=== PATIENT | female | born 1980 | race Caucasian/White ===

== ENCOUNTER → 2016-08-22 | Outpatient (CLI) | payer BC ==
--- NOTE | 2016-08-22 12:22 | Diagnostic Imaging Report ---
PROCEDURE: MRI lumbar spine. TECHNIQUE: Multiplanar, multisequence MRI of the lumbar spine was performed without contrast. INDICATION: Chronic back pain. Left leg pain. FINDINGS: There is a slight straightening of the lumbar spine curvature, may relate to muscle spasm. There is a satisfactory alignment of the lumbar spine at the posterior spinal line and facet joints. The vertebral body heights are normal. Disc heights and signal are normal. No significant marrow signal abnormality is seen. The cauda equina and conus medullaris appear grossly unremarkable. T12-L1: No disc herniation, no spinal canal, or foraminal stenosis. L1-L2: No disc herniation, no spinal canal, or foraminal stenosis. L2-L3: No disc herniation, no spinal canal, or foraminal stenosis. L3-L4: No disc herniation. There is mild facet and ligamentous hypertrophy. No central canal, lateral recess, or foraminal stenosis. L4-L5: No disc herniation. There is a minimal facet and ligamentous hypertrophy. No central canal, lateral recess, or foraminal stenosis. L5-S1: No disc herniation, no spinal canal, or foraminal stenosis. IMPRESSION: Slight straightening of the thoracolumbar curvature may relate to muscle spasm. Minimal degenerative facet changes. Dictated by: Dictated on workstation # [id number]
--- NOTE | 2016-08-22 12:59 | Diagnostic Imaging Report ---
PROCEDURE: MRI left joint lower extremity without contrast. TECHNIQUE: Multiplanar, multisequence non contrast-enhanced MRI of the left lower extremity was accomplished. INDICATION: Left hip pain. FINDINGS: There is normal marrow signal with no suspicious focal lesion, fracture, or evidence of avascular necrosis. There is no significant joint effusion. No significant degenerative changes are seen. There is a 3 x 9 x 4 mm cystic focus seen anterior to the right hip abutting the acetabulum and the base of the labrum. This could be a ganglion cyst or a paralabral cyst potentially related to prior injury. There is no obvious labral tear based on this study without intra-articular contrast. The muscle bulk and signal is normal. No evidence of a muscle tear. There is normal appearance of the iliopsoas tendons and the origin of the hamstring muscles. No distention of the iliopsoas bursa. There is minimal edema along the greater trochanteric bursa suggestive of mild bursitis which appears to be symmetric. Structures in the true pelvis appear grossly unremarkable. IMPRESSION: 1. Slight edema in the greater trochanteric bursa region bilaterally suggestive of mild bursitis. 2. Subcentimeter cystic area anterior to the left acetabulum could relate to tiny ganglion cyst or a paralabral cyst. No obvious labral abnormality is seen. Dictated by: Dictated on workstation # [id number]
== END ==
LOC: RAD 09:19
PROVIDERS: ATTEND Nurse Practitioner Family
DX: M46.1 Sacroiliitis, not elsewhere classified (principal); M54.42 Lumbago with sciatica, left side; G89.29 Other chronic pain
CPT/HCPCS: 72148; 73721

== ENCOUNTER 2018-09-12 09:28 | Emergency (ER) | payer BC ==
[~2018-09-12] VITALS: Ht 157.5 cm; Wt 48.1 kg
--- NOTE | 2018-09-12 10:02 | NUR ---
NOTIFIED OF PT'S PAIN.
--- NOTE | 2018-09-12 10:12 | ED Chest Pain ---
General Chief Complaint: Chest Wall Stated Complaint: RIB PAIN Nursing Triage Note: AMBULATED TO ROOM 10 WITH COMPLAINTS OF LEFT SIDED RIB PAIN AFTER FALLING LAST NIGHT WHILE "HORSING AROUND". STATES SHE HAD BEEN DRINKING ETOH WHEN SHE FELL. Nursing Sepsis Screen: No Definite Risk Source: patient, family Exam Limitations: no limitations History of Present Illness Date Seen by Provider: Sep 12, 2018 Time Seen by Provider: 10:09 Initial Comments This 37-year-old female presents after she sustained an injury to her left chest wall when she fell last night while she was roughhousing with her . The patient is complaining of pain over the left chest wall where she impacted the floor. She is having painful inspirations and feels short of breath. She has had no associated hemoptysis, hematuria, hematemesis, or bloody stool. Patient denies associated head or neck injury. Patient denies paresthesias or weakness in extremities. Patient denies previous significant chest wall injury. Allergies and Home Medications Allergies Coded Allergies: Mirtazapine (Verified Allergy, Unknown, 09/20/08) Home Medications No Active Prescriptions or Reported Meds Patient Home Medication List Home Medication List Reviewed: Yes Review of Systems Review of Systems Constitutional: No chills, No fever EENTM: No Blurred Vision Respiratory: See HPI, Shortness of Air Cardiovascular: Chest Pain (left-sided with inspiration.) Gastrointestinal: No Symptoms Reported; Denies Abdominal Pain, Denies Diarrhea, Denies Vomiting Genitourinary: Denies Burning, Denies Drainage Musculoskeletal: No back pain; other (left chest wall pain.) Skin: no symptoms reported Psychiatric/Neurological: No Symptoms Reported Endocrine: No Symptoms Reported Hematologic/Lymphatic: No Symptoms Reported Past Mtrhbel-Gjwedj-Arkzbg Hx Past Med/Social Hx: Reviewed Nursing Past Med/Soc Hx Patient Social History Alcohol Use: Occasionally Uses Recreational Drug Use: No Smoking Status: Current Everyday Smoker Type Used: Cigarettes Recent Foreign Travel: No Contact w/Someone Who Travel: No Recent Infectious Disease Expo: No Recent Hopitalizations: No Seasonal Allergies Seasonal Allergies: No Past Medical History Surgeries: Yes Gallbladder Respiratory: No Cardiac: No Neurological: No Reproductive Disorders: No Gastrointestinal: No Musculoskeletal: Yes (Hip pain with back pain) Chronic Back Pain Endocrine: No Cancer: No Psychosocial: No Integumentary: No Blood Disorders: No Physical Exam Vital Signs Vital Signs - First Documented 09/12/18 09:36 Temp 98.0 Pulse 103 Resp 16 B/P (MAP) 105/79 (88) Pulse Ox 100 O2 Delivery Room Air Capillary Refill : Less Than 3 Seconds Height, Weight, BMI Height: 5'2.00" Weight: 106lbs. oz. 48.346386us; BMI Method:Stated General Appearance: Mild Distress HEENT: Normal ENT Inspection Neck: Full Range of Motion Respiratory: Lungs Clear, Decreased Breath Sounds; No Respiratory Distress Cardiovascular: Regular Rate, Rhythm, No Edema Gastrointestinal: Normal Bowel Sounds, No Organomegaly, No Pulsatile Mass, Non Tender Extremity: Normal Capillary Refill, Normal Inspection, Normal Range of Motion, Non Tender Neurologic/Psychiatric: Alert, Oriented x3, No Motor/Sensory Deficits, Normal Mood/Affect Skin: Normal Color, Warm/Dry; No Ecchymosis, No Rash Progress/Results/Core Measures Results/Orders Lab Results Laboratory Tests Test 09/12/18 10:14 09/12/18 10:19 Range/Units Urine Color YELLOW Urine Clarity SLIGHTLY CLOUDY Urine pH 5 5-9 Urine Specific [place] 1.020 1.016-1.022 Urine Protein 1+ H NEGATIVE Urine Glucose (UA) NEGATIVE NEGATIVE Urine Ketones NEGATIVE NEGATIVE Urine Nitrite NEGATIVE NEGATIVE Urine Bilirubin NEGATIVE NEGATIVE Urine Urobilinogen NORMAL NORMAL MG/DL Urine Leukocyte Esterase 1+ H NEGATIVE Urine RBC (Auto) 3+ H NEGATIVE Urine RBC NONE /HPF Urine WBC 2-5 /HPF Urine Squamous Epithelial Cells 10-25 H /HPF Urine Crystals NONE /LPF Urine Bacteria TRACE /HPF Urine Casts NONE /LPF Urine Mucus NEGATIVE /LPF Urine Culture Indicated NO White Blood Count 7.4 4.3-11.0 10^3/uL Red Blood Count 4.77 4.35-5.85 10^6/uL Hemoglobin 15.3 11.5-16.0 G/DL Hematocrit 42 35-52 % Mean Corpuscular Volume 89 80-99 FL Mean Corpuscular Hemoglobin 32 25-34 PG Mean Corpuscular Hemoglobin Concent 36 32-36 G/DL Red Cell Distribution Width 11.4 10.0-14.5 % Platelet Count 249 130-400 10^3/uL Mean Platelet Volume 9.6 7.4-10.4 FL Neutrophils (%) (Auto) 73 42-75 % Lymphocytes (%) (Auto) 19 12-44 % Monocytes (%) (Auto) 6 0-12 % Eosinophils (%) (Auto) 2 0-10 % Basophils (%) (Auto) 0 0-10 % Neutrophils # (Auto) 5.4 1.8-7.8 X 10^3 Lymphocytes # (Auto) 1.4 1.0-4.0 X 10^3 Monocytes # (Auto) 0.4 0.0-1.0 X 10^3 Eosinophils # (Auto) 0.2 0.0-0.3 10^3/uL Basophils # (Auto) 0.0 0.0-0.1 10^3/uL My Orders Orders - MANUEL HARPER MD Chest Pa/Lat (2 View) (09/12/18 10:06) Ribs, Left 2-3 Views (09/12/18 10:06) Cbc With Automated Diff (09/12/18 10:06) Ua Culture If Indicated (09/12/18 10:06) Fentanyl Injection (Sublimaze Injection (09/12/18 10:15) Medications Given in ED Current Medications Medications Dose Ordered Sig/Rodney Route Start Time Stop Time Status Last Admin Dose Admin Fentanyl Citrate 50 mcg ONCE ONCE IVP 09/12/18 10:15 09/12/18 10:16 DC 09/12/18 10:17 50 MCG Vital Signs/I&O 09/12/18 09:36 Temp 98.0 Pulse 103 Resp 16 B/P (MAP) 105/79 (88) Pulse Ox 100 O2 Delivery Room Air Blood Pressure Mean: 88 Progress Progress Note : Time: 11:06 Progress Note This patient's radiographic evaluation demonstrated moderately displaced fractures of the sixth seventh and eighth ribs on the left. There is no evidence of a pneumohemothorax. CBC was unremarkable. Urinalysis demonstrated chemical but not microscopic evidence of hematuria. Patient was given 50 g of fentanyl IV with significant improvement in her pain. I discussed the findings with patient and her and placed the patient on Vicodin for pain giving her 30 tablets. I recommended close follow-up with her doctor on Friday. I recommended deep breaths each hour while awake to avoid atelectasis. I invited the patient to the emergency department should any further problems or questions Departure Impression Primary Impression: Fracture of rib Qualified Codes: S22.42XA - Multiple fractures of ribs, left side, initial encounter for closed fracture Additional Impression: Chest wall pain Disposition: HOME, SELF-CARE Condition: Improved Departure-Patient Inst. Decision time for Depature: 11:07 Referrals: [facility]/IZAIAH SALINAS,LOCAL PHYSICIAN (PCP) Primary Care Physician Patient Instructions: Rib Fractures in Adults Add. Discharge Instructions: Vicodin for pain. Deep breaths each hour to avoid pneumonia. Close follow-up with [facility] on Friday. Return if any problems or questions. All discharge instructions reviewed with patient and/or family. Voiced understanding. Scripts No Active Prescriptions or Reported Meds MANUEL HARPER MD Sep 12, 2018 10:12
[2018-09-12] MEDS ORDERED: fentaNYL INJECTION 100 MCG/2 ML AMP IVP ONE (10:15)
[2018-09-12 10:19] LABS: BILIRUBIN,URINE NEGATIVE (NEGATIVE); CLARITY,URINE SLIGHTLY CLOUDY; COLOR,URINE YELLOW; GLUCOSE, URINE (UA) NEGATIVE (NEGATIVE); KETONES,URINE NEGATIVE (NEGATIVE); LEUKOCYTE ESTERASE ,URINE 1+ (NEGATIVE); NITRITE,URINE NEGATIVE (NEGATIVE); PH,URINE 5 (5-9); PROTEIN,URINE 1+ (NEGATIVE); UROBILINOGEN,URINE NORMAL (NORMAL)
[2018-09-12 10:25] LABS: BASOPHILS % (AUTO) 0 % (0-10); EOSINOPHILS # (AUTO) 0.2 10^3/uL (0.0-0.3); EOSINOPHILS % (AUTO) 2 % (0-10); HEMATOCRIT 42 % (35-52); HEMOGLOBIN 15.3 G/DL (11.5-16.0); LYMPHOCYTES # (AUTO) 1.4 X 10^3 (1.0-4.0); LYMPHOCYTES % (AUTO) 19 % (12-44); MEAN CORPUSCULAR HEMOGLOBIN 32 PG (25-34); MEAN CORPUSCULAR HGB CONC 36 G/DL (32-36); MEAN CORPUSCULAR VOLUME 89 FL (80-99); MEAN PLATELET VOLUME 9.6 FL (7.4-10.4); MONOCYTES # (AUTO) 0.4 X 10^3 (0.0-1.0); MONOCYTES % (AUTO) 6 % (0-12); NEUTROPHILS # (AUTO) 5.4 X 10^3 (1.8-7.8); NEUTROPHILS % (AUTO) 73 % (42-75); PLATELET COUNT 249 10^3/uL (130-400); RED CELL DISTRIBUTION WIDTH 11.4 % (10.0-14.5); WHITE BLOOD COUNT 7.4 10^3/uL (4.3-11.0)
[2018-09-12 10:26] LABS: BACTERIA,URINE TRACE /HPF
--- NOTE | 2018-09-12 10:41 | Diagnostic Imaging Report ---
INDICATION: Wrestling injury, left-sided pain FINDINGS: No lung contusion, pneumothorax or hemothorax is demonstrated. The cardiomediastinal and hilar contours appeared normal. There is no free air beneath the diaphragms. The sternum and manubrium show no morphological distortion. The thoracic spine unremarkable. No acute appearing abnormality. No identifiable rib fracture deformity. IMPRESSION: Unremarkable two-view chest Dictated by: Dictated on workstation # [id number]
--- NOTE | 2018-09-12 10:46 | Diagnostic Imaging Report ---
PATIENT HISTORY: Left rib pain after wrestling. TECHNIQUE: Frontal and oblique views of the left ribs COMPARISON: Chest x-ray from the same day FINDINGS: The left lung is clear. There are mildly displaced fractures of the lateral left sixth, seventh, and eighth ribs. IMPRESSION: Mildly displaced fractures of the left sixth through eighth ribs. Dictated by: Dictated on workstation # [id number]
[2018-09-12 11:20] VITALS: BP 111/84
== END 2018-09-12 11:20 | disposition home or self-care (01) ==
LOC: EDUNIT# 09:28 → ER 09:29
DX: S22.42XA Multiple fractures of ribs, left side, initial encounter for closed fracture (principal); R07.89 Other chest pain; F17.210 Nicotine dependence, cigarettes, uncomplicated; Z88.8 Allergy status to other drugs, medicaments and biological substances; W18.30XA Fall on same level, unspecified, initial encounter
CPT/HCPCS: 36415; 71046; 71100; 81000; 85025; 96374

== ENCOUNTER 2019-01-19 20:49 | Emergency (ER) | payer BC ==
[~2019-01-19] VITALS: Ht 157.4 cm; Wt 45.3 kg
[2019-01-20] MEDS ORDERED: RX-DOXYCYCLINE 100 MG (VIBRAMYCIN) TAB PPK#2 PO STA (00:44)
[2019-01-20] MEDS ORDERED: KETOROLAC 60 MG/2 ML VIAL IM ONE (00:45)
[2019-01-20] MEDS ORDERED: BENZONATATE 100 MG (TESSALON) CAPSULE PO SCH (00:45)
[2019-01-20] MEDS ORDERED: PROM118S4 PO (00:47)
[2019-01-20] MEDS ORDERED: DOXY100C42 PO (00:47)
[2019-01-20] MEDS ORDERED: METH4TAB PO (00:47)
[2019-01-20] MEDS ORDERED: BENZ100C18 PO (00:47)
--- NOTE | 2019-01-20 00:47 | ED Cough/URI ---
General Chief Complaint: Cough/Cold/Flu Symptoms Stated Complaint: UPPER RESP INFECTION Nursing Triage Note: PATIENT C/O COUGH, LEFT UPPER CHEST DISCOMFORT WHEN LYING AND SOB. THIS BEGAN APPROXIMATELY ONE WEEK AGO. SHE HAS A PAST HX OF THREE BROKEN LEFT RIBS AND FEELS LIKE "THE COUGHING HAS IRRITATED THEM". Sepsis Screen: No Definite Risk Allergies and Home Medications Allergies Coded Allergies: Mirtazapine (Verified Allergy, Unknown, 09/20/08) Home Medications No Active Prescriptions or Reported Meds Past Kgvkdpj-Hmvuyz-Jdbtru Hx Patient Social History Alcohol Use: Occasionally Uses Recreational Drug Use: Yes Type Used: Cigarettes Recent Foreign Travel: No Contact w/Someone Who Travel: No Recent Infectious Disease Expo: No Recent Hopitalizations: No Seasonal Allergies Seasonal Allergies: No Past Medical History Surgeries: Yes Gallbladder Respiratory: No Cardiac: No Neurological: No Reproductive Disorders: No Genitourinary: No Gastrointestinal: No Musculoskeletal: Yes (Hip pain with back pain, left rib fx x3) Chronic Back Pain, Fractures Endocrine: No Cancer: No Psychosocial: No Integumentary: No Blood Disorders: No Physical Exam Vital Signs - First Documented 01/19/19 22:45 Temp 36.4 Pulse 75 B/P (MAP) 147/92 (110) Pulse Ox 99 O2 Delivery Room Air Capillary Refill : Less Than 3 Seconds Height: 5'2.00" Weight: 106lbs. oz. 48.522325yi; 18.00 BMI Method:Stated Progress/Results/Core Measures Suspected Sepsis Recent Fever Within 48 Hours: No Infection Criteria Present: Suspected New Infection New/Unexplained Altered Menta: No Sepsis Screen: No Definite Risk SIRS Temperature: Pulse: 75 Respiratory Rate: Blood Pressure 147 /92 Mean: 110 Results/Orders Micro Results Microbiology 01/19/19 Influenza Types A,B Antigen (MARISA) - Final, Complete My Orders Orders - SHAYAN HYATT DO Influenza A And B Antigens (01/19/19 23:37) Urine Bedside (01/19/19 23:48) Chest Pa/Lat (2 View) (01/20/19 00:01) Vital Signs/I&O 01/19/19 22:45 Temp 36.4 Pulse 75 B/P (MAP) 147/92 (110) Pulse Ox 99 O2 Delivery Room Air Capillary Refill : Less Than 3 Seconds Blood Pressure Mean: 110 Departure Impression Primary Impression: Bronchitis Additional Impression: Left-sided chest wall pain Disposition: HOME, SELF-CARE Condition: Stable Departure-Patient Inst. Referrals: NO,LOCAL PHYSICIAN (PCP/Family) Primary Care Physician Patient Instructions: Acute Bronchitis, Adult (DC), Costochondritis (DC) Add. Discharge Instructions: TYLENOL AND MOTRIN NEEDED FOR PAIN OR FEVER LOTS OF CLEAR LIQUIDS FOLLOW UP WITH YOUR DR IN 3-4 DAYS IF NO BETTER All discharge instructions reviewed with patient and/or family. Voiced understanding. Scripts Methylprednisolone (Medrol) 4 Mg Tab.ds.pk 4 MG PO UD, #1 PKG Prov: SHAYAN HYATT DO 01/20/19 D-Methorphan Hb/Prometh HCl (Promethazine-Dm Syrup) 118 Ml Syrup 1-2 TSP PO Q4H for Cough, #120 ML Prov: SHAYAN HYATT DO 01/20/19 Benzonatate (TESSALON PERLES) 100 Mg Capsule 1-2 TAB PO TID for Cough, #30 CAP Prov: SHAYAN HYATT DO 01/20/19 Doxycycline Monohydrate (Doxycycline Monohydrate) 100 Mg Capsule 100 MG PO BID, #20 CAP Prov: SHAYAN HYATT DO 01/20/19 SHAYAN HYATT DO Jan 20, 2019 00:47
[2019-01-20 01:09] VITALS: BP 132/102
--- NOTE | 2019-01-20 07:06 | Diagnostic Imaging Report ---
INDICATION: Cough. Rib pain. The lungs are well aerated. There are no infiltrates. No pneumothorax or pleural effusion. No bony abnormalities. Heart is not enlarged. IMPRESSION: Normal PA and lateral chest. Dictated by: Dictated on workstation # [id number]
== END 2019-01-20 01:16 | disposition home or self-care (01) ==
LOC: EDUNIT# 20:49 → ER 20:51
DX: J40 Bronchitis, not specified as acute or chronic (principal); R07.89 Other chest pain; Z88.8 Allergy status to other drugs, medicaments and biological substances
CPT/HCPCS: 71046; 84703; 87804

== ENCOUNTER 2019-08-19 01:50 | Emergency (ER) | payer BC ==
[~2019-08-19 01:50] MED LIST: BENZ100C18 PO; DOXY100C42 PO; METH4TAB PO; PROM118S5 PO
[2019-08-19 03:18] LABS: BILIRUBIN,URINE NEGATIVE (NEGATIVE); CLARITY,URINE CLEAR; COLOR,URINE YELLOW; GLUCOSE, URINE (UA) NEGATIVE (NEGATIVE); KETONES,URINE NEGATIVE (NEGATIVE); LEUKOCYTE ESTERASE ,URINE NEGATIVE (NEGATIVE); NITRITE,URINE NEGATIVE (NEGATIVE); PH,URINE 5.5 (5-9); PROTEIN,URINE TRACE (NEGATIVE)
[2019-08-19 03:30] LABS: BACTERIA,URINE NEGATIVE /HPF; RBC,URINE 0-2 /HPF; SQUAMOUS EPITHELIAL CELL,UR RARE /HPF; WBC,URINE RARE /HPF
[2019-08-19 03:32] LABS: AMPHETAMINE SCREEN, URINE NEGATIVE (NEGATIVE); BARBITURATE SCREEN URINE NEGATIVE (NEGATIVE); BENZODIAZEPINES SCREEN URINE NEGATIVE (NEGATIVE); CANNABINOID SCREEN, URINE NEGATIVE (NEGATIVE); COCAINE SCREEN URINE NEGATIVE (NEGATIVE); METHADONE STAT NEGATIVE (NEGATIVE); METHAMPHETAMINE SCREEN URINE S NEGATIVE (NEGATIVE); OPIATE SCREEN URINE NEGATIVE (NEGATIVE); OXYCODONE STAT NEGATIVE (NEGATIVE); PROPOXYPHENE STAT NEGATIVE (NEGATIVE); TRICYCLIC ANTIDEPRESSANTS SCRE NEGATIVE (NEGATIVE)
[2019-08-19] MEDS ORDERED: KETOROLAC 30 MG/ML VIAL IVP STA (03:33)
[2019-08-19 03:56] LABS: BASOPHILS % (AUTO) 0 % (0-10); EOSINOPHILS # (AUTO) 0.2 10^3/uL (0.0-0.3); EOSINOPHILS % (AUTO) 4 % (0-10); HEMATOCRIT 41 % (35-52); HEMOGLOBIN 14.7 G/DL (11.5-16.0); LYMPHOCYTES # (AUTO) 1.3 X 10^3 (1.0-4.0); LYMPHOCYTES % (AUTO) 22 % (12-44); MEAN CORPUSCULAR HEMOGLOBIN 33 PG (25-34); MEAN CORPUSCULAR HGB CONC 36 G/DL (32-36); MEAN CORPUSCULAR VOLUME 92 FL (80-99); MEAN PLATELET VOLUME 9.6 FL (7.4-10.4); MONOCYTES # (AUTO) 0.5 X 10^3 (0.0-1.0); MONOCYTES % (AUTO) 7 % (0-12); NEUTROPHILS % (AUTO) 67 % (42-75); PLATELET COUNT 285 10^3/uL (130-400); RED CELL DISTRIBUTION WIDTH 11.7 % (10.0-14.5); WHITE BLOOD COUNT 6.1 10^3/uL (4.3-11.0)
[2019-08-19 04:04] LABS: ALBUMIN 4.6 GM/DL (3.2-4.5); CHLORIDE 107 MMOL/L (98-107); POTASSIUM 3.2 MMOL/L (3.6-5.0); SODIUM 139 MMOL/L (135-145)
[2019-08-19 04:05] LABS: AMYLASE 51 U/L (25-125); CALCIUM 9.2 MG/DL (8.5-10.1)
[2019-08-19 04:06] LABS: GLUCOSE 97 MG/DL (70-105); TOTAL PROTEIN 7.5 GM/DL (6.4-8.2)
[2019-08-19 04:07] LABS: CARBON DIOXIDE 21 MMOL/L (21-32)
[2019-08-19 04:08] LABS: BILIRUBIN,TOTAL 0.8 MG/DL (0.1-1.0)
[2019-08-19 04:09] LABS: ALKALINE PHOSPHATASE 42 U/L (40-136)
[2019-08-19 04:10] LABS: GFR ESTIMATED > 60
[2019-08-19 04:11] LABS: BUN/CREATININE RATIO 17
[2019-08-19 04:13] LABS: ALANINE AMINOTRANSFERASE 15 U/L (0-55); LIPASE 16 U/L (8-78)
[2019-08-19] MEDS ORDERED: CIPROFLOXACIN 500 MG (CIPRO) TABLET PO SCH (05:15)
[2019-08-19] MEDS ORDERED: metroNIDAZOLE 500 MG (FLAGYL) TAB PO ONE (05:15)
[2019-08-19] MEDS ORDERED: DICY20TA10 PO (05:19)
[2019-08-19] MEDS ORDERED: METR500T PO (05:19)
[2019-08-19] MEDS ORDERED: ONDA4TAB11 PO (05:19)
[2019-08-19] MEDS ORDERED: L. A1CAP11 PO (05:19)
[2019-08-19] MEDS ORDERED: HYOS0.1283 SL (05:19)
[2019-08-19] MEDS ORDERED: CIPR500T4 PO (05:19)
--- NOTE | 2019-08-19 05:19 | ED Abdominal Pain ---
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 TOOK 2 TYLENOL AT 2330. LMP 08/17/19, NO INCREASE OF BLEEDING. STATES VOMITED 4X FROM THE PAIN. Sepsis Screen: No Definite Risk Source of Information: Patient History of Present Illness Date Seen by Provider: August 19, 2019 Time Seen by Provider: 02:45 Initial Comments PT ARRIVES VIA POV FROM HOME C/O "MENSTRUAL CRAMPS" ALL OVER ABDOMEN--STATES IT WOKE HER UP AROUND 2130 TONIGHT STATES HER MENSTRUAL PERIOD STARTED ON Friday08/17/19--COMPLETELY NORMAL. NO CONTROL. STATES SHE HAS HAD MENSTRUAL CRAMPS JUST LIKE THIS IN THE PAST, BUT DID NOT SEEK CARE TOOK 2 TYLENOL AT 2330 STATES "THE PAIN IS CONTINUOUS-PAIN IS SO BAD IT CAUSED ME TO THROW UP 4 TIMES--THE PAIN COMES AND GOES AND IT HAS SUBSIDED NOW" STATES PAIN RADIATES INTO BILATERAL FLANK AREAS AND LOWER BACK NO FEVER/SWEATS/CHILLS NO URINARY SYMPTOMS NO VAGINAL DISCHARGE PRIOR TO STARTED HER MENSTRUAL PERIOD. NO DIARRHEA OR CONSTIPATION PT ALSO STATES SHE HAS CHRONIC PAIN WITH INTERCOURSE, BUT NEVER SOUGHT CARE FOR THAT ISSUE. PT IS AB 0 NO SICK CONTACTS OR KNOWN EXPOSURE TO CORONAVIRUS. PCP: [facility] Allergies and Home Medications Allergies Coded Allergies: Mirtazapine (Verified Allergy, Unknown, 09/20/08) Home Medications Ciprofloxacin HCl 500 Mg Tablet, 500 MG PO BID Prescribed by: SHAYAN HYATT on 08/19/19518 Dicyclomine HCl 20 Mg Tablet, 20 MG PO Q6H Prescribed by: SHAYAN HYATT on 08/19/19518 Hyoscyamine Sulfate 0.125 Mg Tab.subl, 0.25 MG SL Q4H Prescribed by: SHAYAN HYATT on 08/19/19518 L. Acidophilus/Pectin, [place] 1 Each Capsule, 2 EACH PO QID Prescribed by: SHAYAN HYATT on 08/19/19518 Metronidazole 500 Mg Tablet, 500 MG PO QID Prescribed by: SHAYAN HYATT on 08/19/19518 Ondansetron 4 Mg Tab.rapdis, 4 MG PO Q4H Prescribed by: SHAYAN HYATT on 08/19/19 0519 Patient Home Medication List Home Medication List Reviewed: Yes Review of Systems Review of Systems Constitutional: no symptoms reported; No chills, No diaphoresis, No dizziness, No fever EENTM: No Symptoms Reported Respiratory: No Symptoms Reported Cardiovascular: No Symptoms Reported Gastrointestinal: See HPI, Abdominal Pain; Denies Constipated, Denies Diarrhea; Nausea, Vomiting Genitourinary: See HPI, Flank Pain Musculoskeletal: see HPI, back pain Skin: no symptoms reported Psychiatric/Neurological: No Symptoms Reported Endocrine: No Symptoms Reported Hematologic/Lymphatic: No Symptoms Reported Past Bqdajth-Botrlq-Jlyzpl Hx Past Med/Social Hx: Reviewed and Corrections made Patient Social History Alcohol Use: Occasionally Uses Recreational Drug Use: No Smoking Status: Current Everyday Smoker (1/2 PPD) Type Used: Cigarettes Recent Foreign Travel: No Contact w/Someone Who Travel: No Recent Infectious Disease Expo: No Recent Hopitalizations: No Physical Abuse: No Sexual Abuse: No Mistreated: No Fear: No Seasonal Allergies Seasonal Allergies: No Past Medical History Surgeries: Yes (MICHAEL 05/2005) Gallbladder Respiratory: No Cardiac: No Neurological: No Reproductive Disorders: No Genitourinary: No Gastrointestinal: Yes (MICHAEL 05/2005) Gall Bladder Disease Musculoskeletal: Yes (Hip pain with back pain, left rib fx x3) Chronic Back Pain, Fractures Endocrine: No HEENT: No Cancer: No Psychosocial: No Integumentary: No Blood Disorders: No Physical Exam Vital Signs Vital Signs - First Documented 08/19/19 02:42 Temp 36.5 Pulse 81 Resp 18 B/P (MAP) 148/107 (121) Pulse Ox 100 O2 Delivery Room Air Capillary Refill : Less Than 3 Seconds Height/Weight/BMI Height: 5'2.00" Weight: 106lbs. oz. 48.391067ns; 18.00 BMI Method:Stated General Appearance: no apparent distress, thin, other (DOES NOT APPEAR TO BE IN ANY DISCOMFORT OR DISTRESS. WALKS UPRIGHT AND MOVES WITHOUT DIFFICULTY. TEXTING/PLAYING ON PHONE THROUGHOUT EXAM AND VISIT. 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, no motor/sensory deficits, alert, normal mood/affect, oriented x 3 Skin: normal color, warm/dry; No rash Progress/Results/Core Measures Results/Orders Lab Results Laboratory Tests Test 08/19/19 03:08 08/19/19 03:45 Range/Units Urine Color YELLOW Urine Clarity CLEAR Urine pH 5.5 5-9 Urine Specific [place] >=1.030 1.016-1.022 Urine Protein TRACE H NEGATIVE Urine Glucose (UA) NEGATIVE NEGATIVE Urine Ketones NEGATIVE NEGATIVE Urine Nitrite NEGATIVE NEGATIVE Urine Bilirubin NEGATIVE NEGATIVE Urine Urobilinogen 0.2 < = 1.0 MG/DL Urine Leukocyte Esterase NEGATIVE NEGATIVE Urine RBC (Auto) 1+ H NEGATIVE Urine RBC 0-2 /HPF Urine WBC RARE /HPF Urine Squamous Epithelial Cells RARE /HPF Urine Crystals NONE /LPF Urine Bacteria NEGATIVE /HPF Urine Casts NONE /LPF Urine Mucus SMALL H /LPF Urine Culture Indicated NO Urine Opiates Screen NEGATIVE NEGATIVE Urine Oxycodone Screen NEGATIVE NEGATIVE Urine Methadone Screen NEGATIVE NEGATIVE Urine Propoxyphene Screen NEGATIVE NEGATIVE Urine Barbiturates Screen NEGATIVE NEGATIVE Ur Tricyclic Antidepressants Screen NEGATIVE NEGATIVE Urine Phencyclidine Screen NEGATIVE NEGATIVE Urine Amphetamines Screen NEGATIVE NEGATIVE Urine Methamphetamines Screen NEGATIVE NEGATIVE Urine Benzodiazepines Screen NEGATIVE NEGATIVE Urine Cocaine Screen NEGATIVE NEGATIVE Urine Cannabinoids Screen NEGATIVE NEGATIVE White Blood Count 6.1 4.3-11.0 10^3/uL Red Blood Count 4.50 4.35-5.85 10^6/uL Hemoglobin 14.7 11.5-16.0 G/DL Hematocrit 41 35-52 % Mean Corpuscular Volume 92 80-99 FL Mean Corpuscular Hemoglobin 33 25-34 PG Mean Corpuscular Hemoglobin Concent 36 32-36 G/DL Red Cell Distribution Width 11.7 10.0-14.5 % Platelet Count 285 130-400 10^3/uL Mean Platelet Volume 9.6 7.4-10.4 FL Neutrophils (%) (Auto) 67 42-75 % Lymphocytes (%) (Auto) 22 12-44 % Monocytes (%) (Auto) 7 0-12 % Eosinophils (%) (Auto) 4 0-10 % Basophils (%) (Auto) 0 0-10 % Neutrophils # (Auto) 4.0 1.8-7.8 X 10^3 Lymphocytes # (Auto) 1.3 1.0-4.0 X 10^3 Monocytes # (Auto) 0.5 0.0-1.0 X 10^3 Eosinophils # (Auto) 0.2 0.0-0.3 10^3/uL Basophils # (Auto) 0.0 0.0-0.1 10^3/uL Sodium Level 139 135-145 MMOL/L Potassium Level 3.2 L 3.6-5.0 MMOL/L Chloride Level 107 98-107 MMOL/L Carbon Dioxide Level 21 21-32 MMOL/L Anion Gap 11 5-14 MMOL/L Blood Urea Nitrogen 12 7-18 MG/DL Creatinine 0.70 0.60-1.30 MG/DL Estimat Glomerular Filtration Rate > 60 BUN/Creatinine Ratio 17 Glucose Level 97 70-105 MG/DL Calcium Level 9.2 8.5-10.1 MG/DL Corrected Calcium 8.5-10.1 MG/DL Total Bilirubin 0.8 0.1-1.0 MG/DL Aspartate Amino Transf (AST/SGOT) 15 5-34 U/L Alanine Aminotransferase (ALT/SGPT) 15 0-55 U/L Alkaline Phosphatase 42 40-136 U/L Total Protein 7.5 6.4-8.2 GM/DL Albumin 4.6 H 3.2-4.5 GM/DL Amylase Level 51 25-125 U/L Lipase 16 8-78 U/L My Orders Orders - EDMARLEAA K DO Ua Culture If Indicated (08/19/19 02:43) Urine Bedside (08/19/19 02:43) Straight Cath For Spec.-Adult (08/19/19 02:54) Drug Screen Stat (Urine) (08/19/19 02:54) Ed Iv/Invasive Line Start (08/19/19 03:33) Ct Abd/Pelvis Wo(Kidney Stone) (08/19/19 03:33) Amylase (08/19/19 03:33) Cbc With Automated Diff (08/19/19 03:33) Comprehensive Metabolic Panel (08/19/19 03:33) Lipase (08/19/19 03:33) Abdomen, Flat & Upright/Decub (08/19/19 03:33) Ketorolac Injection (Toradol Injection) (08/19/19 03:33) Ciprofloxacin Tablet (Cipro Tablet) (08/19/19 05:15) Metronidazole Tablet (Flagyl Tablet) (08/19/19 05:15) Potassium Chloride (Tablet) (K Dur Table (08/19/19 05:30) Medications Given in ED Current Medications Medications Dose Ordered Sig/Rodney Route Start Time Stop Time Status Last Admin Dose Admin Metronidazole 500 mg ONCE ONCE PO 08/19/19 05:15 08/19/19 05:16 DC 08/19/19 05:27 500 MG Potassium Chloride 20 meq ONCE ONCE PO 08/19/19 05:30 08/19/19 05:31 DC 08/19/19 05:27 20 MEQ Vital Signs/I&O 08/19/19 08/19/19 02:42 05:35 Temp 36.5 36.5 Pulse 81 79 Resp 18 18 B/P (MAP) 148/107 (121) 124/98 (121) Pulse Ox 100 100 O2 Delivery Room Air Room Air Blood Pressure Mean: 121 Progress Progress Note : Progress Note SYMPTOMS MUCH IMPROVED AT DISMISSAL Diagnostic Imaging Comments ABDOMEN XRAYS--NO ACUTE PROCESS, PENDING RADIOLOGIST REVIEW CT5 ABDOMEN/PELVIS--MILD DIFFUSE COLITIS, PER [facility] VIA FAX AT 0578 Reviewed: Reviewed by Me Departure Impression Primary Impression: Colitis Additional Impression: MILD HYPOKALEMIA Disposition: HOME, SELF-CARE Condition: Stable Departure-Patient Inst. Referrals: [facility] (PCP/Family) Primary Care Physician Patient Instructions: Colitis (DC) Add. Discharge Instructions: CLEAR LIQUIDS--WATER, BROTH, JELLO, GATORADE NO FOOD UNTIL YOUR PAIN AND NAUSEA IS GONE, THEN YOU MAY ADD A BRATS DIET TO CLEAR LIQUIDS--BANANAS, RICE, APPLESAUCE, TOAST, SALTINES FOLLOW UP WITH YOUR DR IN 3-4 DAYS IF NO BETTER All discharge instructions reviewed with patient and/or family. Voiced understanding. Scripts L. Acidophilus/Pectin, [place] (Acidophilus Capsule) 1 Each Capsule 2 EACH PO QID, #40 CAP Prov: SHAYAN HYATT DO 08/19/19 Ondansetron (Ondansetron Odt) 4 Mg Tab.rapdis 4 MG PO Q4H for Nausea/Vomiting, #10 TAB Prov: SHAYAN HYATT DO 08/19/19 Dicyclomine HCl (Dicyclomine HCl) 20 Mg Tablet 20 MG PO Q6H for Abdominal Pain, #20 TAB Prov: SHAYAN HYATT DO 08/19/19 Hyoscyamine Sulfate (Levsin-Sl) 0.125 Mg Tab.subl 0.25 MG SL Q4H, #10 TAB Prov: SHAYAN HYATT DO 08/19/19 Metronidazole (Flagyl) 500 Mg Tablet 500 MG PO QID, #40 TAB Prov: SHAYAN HYATT DO 08/19/19 Ciprofloxacin HCl (Ciprofloxacin HCl) 500 Mg Tablet 500 MG PO BID, #20 TAB Prov: SHAYAN HYATT DO 08/19/19 SHAYAN HYATT DO August 19, 2019 05:19
[2019-08-19] MEDS ORDERED: KCL 20 MEQ TAB (K-DUR) PO ONE (05:30)
[2019-08-19 05:35] VITALS: BP 124/98
--- NOTE | 2019-08-19 06:02 | Diagnostic Imaging Report ---
INDICATION: Abdominal pain. COMPARISON: CT abdomen and pelvis performed earlier same day. FINDINGS: Nonobstructive bowel gas pattern. No free intraperitoneal air. Cholecystectomy. No abnormal soft tissue mineralizations. A few scattered pelvic phleboliths are noted. IMPRESSION: No radiographic abnormality in the abdomen. Dictated by: Dictated on workstation # [id number]
--- NOTE | 2019-08-19 06:04 | Diagnostic Imaging Report ---
CT ABD/PELVIS WO(KIDNEY STONE) TECHNIQUE: Unenhanced CT imaging of the abdomen and pelvis was performed. 2-D reformats are created and submitted for interpretation. Automatic exposure controls were utilized to optimize patient dose. INDICATION: Abdominal pain. COMPARISON: None available. FINDINGS: Evaluation of the abdominal viscera is mildly limited without contrast. Lower chest: The lung bases are clear. No pericardial or pleural effusion. Peritoneum: No free intraperitoneal air or fluid. Liver and biliary system: Unenhanced liver is normal. Cholecystectomy. No biliary duct dilatation. Spleen and Pancreas: Spleen is normal. Unenhanced pancreas is grossly normal. Adrenals: Normal. tract: No renal or ureteral calculi. No obstructive uropathy. Urinary bladder is well filled without wall thickening. Uterus and ovaries are normal in appearance. GI tract: Stomach is decompressed. No bowel obstruction. The transverse, descending and rectosigmoid colon have circumferential wall thickening. A mild amount of inflammation is present along the descending colon. Appendix is normal. Vasculature and Lymph nodes: Normal caliber aorta. No abdominal or pelvic lymphadenopathy. Musculoskeletal: No concerning osseous lesion. IMPRESSION: 1. Acute colitis in a contiguous fashion from the transverse through rectosigmoid colon. This could represent an inflammatory colitis such as ulcerative colitis, or be due to an infectious process. 2. Findings are in agreement with the preliminary report. Dictated by: Dictated on workstation # [id number]
== END 2019-08-19 05:36 | disposition home or self-care (01) ==
LOC: EDUNIT# 01:50 → ER 01:53
DX: K52.9 Noninfective gastroenteritis and colitis, unspecified (principal); E87.6 Hypokalemia; F17.210 Nicotine dependence, cigarettes, uncomplicated; Z88.8 Allergy status to other drugs, medicaments and biological substances
CPT/HCPCS: 36415; 51701; 74019; 74176; 80053; 80306; 81000; 82150; 83690; 84703; 85025

== ENCOUNTER 2020-07-06 09:35 | Outpatient (RCR) | payer BC ==
[~2020-07-06] VITALS: Ht 157.5 cm; Wt 50.9 kg
[~2020-07-06 09:35] MED LIST changes: +CIPR500T5 PO; +DICY20TA10 PO; +HYOS0.1283 SL; +L. A1CAP11 PO; +METR500T PO; +ONDA4TAB11 PO
[2020-07-06] MEDS ORDERED: OMEP20CA18 PO (10:50)
== END 2020-07-06 12:26 | disposition home or self-care (01) ==
LOC: PREOP 09:35 → EDSTATUS 10:30 → PREOP 12:26
PROVIDERS: ATTEND Surgery
DX: Z01.818 Encounter for other preprocedural examination (principal)

== ENCOUNTER → 2020-07-07 | Outpatient (CLI) | payer BC ==
[~2020-07-07] MED LIST changes: +OMEP20CA18 PO
== END ==
LOC: LAB FS 10:30
PROVIDERS: ATTEND Surgery
DX: Z01.812 Encounter for preprocedural laboratory examination (principal); K21.9 Gastro-esophageal reflux disease without esophagitis; R11.2 Nausea with vomiting, unspecified; Z20.822 Contact with and (suspected) exposure to COVID-19
CPT/HCPCS: 87635

== ENCOUNTER 2020-07-10 11:06 | Day surgery (SDC) | payer BC ==
[~2020-07-10] VITALS: Ht 157.5 cm; Wt 50.9 kg
[2020-07-10] MEDS ORDERED: LACTATED RINGERS 1,000 ML IV STA (11:21)
[2020-07-10] MEDS ORDERED: LACTATED RINGERS 1,000 ML IV ONE (11:25)
[2020-07-10] MEDS ORDERED: HURRICAINE EXT TUBE (BENZOCAINE) XX PRN (11:30)
--- NOTE | 2020-07-10 11:37 | Progress Note-Pre Operative ---
Pre-Operative Progress Note H&P Reviewed The H&P was reviewed, patient examined and no changes noted. Time Seen by Provider: 11:35 Date H&P Reviewed: Jul 10, 2020 Time H&P Reviewed: 11:35 Pre-Operative Diagnosis: Hematemesis, Hx of H. Pylori GARCIA SPANN DO Jul 10, 2020 11:37
[2020-07-10 11:48] VITALS: BP 162/97
[2020-07-10] MEDS ORDERED: PROPOFOL INJECTION 50 ML IV ONE (11:58)
[2020-07-10] MEDS ORDERED: MIDAZOLAM 2 MG/2 ML (VERSED) VIAL ONE (11:59)
[2020-07-10] MEDS ORDERED: HURRICAINE EXT TUBE (BENZOCAINE) ONE (12:14)
--- NOTE | 2020-07-10 12:37 | Endoscopy Discharge Instruct ---
Endo Procedure/Findings Findings 1.: Gastritis 2.: Hiatal Hernia Discharge Instructions - Activity: You might feel a little sleepy until tomorrow. This is due to the medicine you received to relax you. Until tomorrow, you should: NOT drive a car, operate machinery or power tools. NOT drink any alcoholic beverages. NOT make any important decisions or sign importortant papers. Do not return to work until tomorrow, unless otherwise instructed. Resume previous activities tomorrow. Diet: Start by taking liquids. If you tolerate liquids, advance to solid food. 1.: EGD in 1 year Notify Physician - If you experience excessive bleeding, unusual abdominal pain, fever, or chest pain, contact your doctor immediately. GARCIA SPANN DO Jul 10, 2020 12:37
--- NOTE | 2020-07-10 12:37 | Progress Note-Post Operative ---
Post-Operative Progess Note Surgeon (s)/Toe Former (s) Surgeon GARCIA SPANN DO Toe Former: none Pre-Operative Diagnosis Hematemesis, Hx of H. Pylori Post-Operative Diagnosis same plus Gastritis Hiatal Hernia Procedure & Operative Findings Date of Procedure 07/10/20 Procedure Performed/Findings EGD with bx Anesthesia Type IV sedation by SUPERVISOR WATER SOFTENER SERVICE Estimated Blood Loss Estimated blood loss (mL): scant Specimens/Packing Specimens Removed antral bx body of stomach bx GE jxn bx GARCIA SPANN DO Jul 10, 2020 12:37
[2020-07-10 12:40] VITALS: BP 104/57
[2020-07-10 12:45] VITALS: BP 117/62
[2020-07-10 12:50] VITALS: BP 126/75
--- NOTE | 2020-07-10 12:51 | Anesthesia-General Post-Op ---
MAC Patient Condition Mental Status/LOC: Same as Preop Cardiovascular: Satisfactory Nausea/Vomiting: Absent Respiratory: Satisfactory Pain: Controlled Complications: Absent Post Op Complications Complications None Follow Up Care/Instructions Patient Instructions None needed. Anesthesiology Discharge Order Discharge Order Patient is doing well, no complaints, stable vital signs, no apparent adverse anesthesia problems. No complications reported per nursing. ELVIRA SNOWDEN CRNA Jul 10, 2020 12:51
[2020-07-10 13:20] VITALS: BP 124/89
[2020-07-10 13:22] VITALS: BP 124/89
--- NOTE | 2020-07-11 03:41 | OPERATIVE REPORT ---
DATE OF SERVICE: PREOPERATIVE DIAGNOSIS: Hematemesis, history of H. pylori. POSTOPERATIVE DIAGNOSES: Gastritis, hiatal hernia. PROCEDURE: EGD with biopsy. SURGEON: Ward Mcgrath DO DOUGH MAKER: None. ANESTHESIA: IV sedation by the TODDLER TEACHER. SPECIMEN: Antral biopsy, body of stomach biopsy, GE junction biopsy. BLOOD LOSS: Scant. FLUIDS: Per anesthesia. POSTOPERATIVE CONDITION: Stable. INDICATION FOR PROCEDURE: The patient is a 39-year-old female with history of hematemesis and H. pylori and needed a workup. FINDINGS: The patient had some mild gastritis and hiatal hernia. No other obvious pathology seen. PROCEDURE NOTE: After informed consent was obtained, the patient was brought to the endoscopy suite, placed in bed in left lateral decubitus position. She was administered IV sedation by the TODDLER TEACHER who monitored her vitals the entire time, heart rate, blood pressure and pulse ox and the scope was inserted down the mouth through the esophagus into the stomach, did not see anything in the esophagus. On the way down, in the antrum, saw some mild gastritis, took a picture, pushed into duodenum. Duodenum looked fine. Pulled back, did a biopsy of the antrum, then retroflexed. did a biopsy of body of stomach and saw a small hiatal hernia. Pulled the scope into the GE junction, did a biopsy here and suctioned all the air out of the stomach and pulled the scope up the esophagus, took a few more pictures. Nothing in the esophagus seen. Pulled the scope out. The patient tolerated the procedure. She recovered in endoscopy suite. Job ID: [id number] DocumentID: [id number] Dictated Date: 07/10/2020 20:08:05 Termite Treater Date: 07/11/2020 03:40:09 Dictated By: WARD MCGRATH DO
== END 2020-07-10 13:24 | disposition home or self-care (01) ==
LOC: ENDO 11:06
PROVIDERS: ATTEND Surgery
DX: K29.50 Unspecified chronic gastritis without bleeding (principal); K21.00 Gastro-esophageal reflux disease with esophagitis, without bleeding; K92.0 Hematemesis; K44.9 Diaphragmatic hernia without obstruction or gangrene; F17.210 Nicotine dependence, cigarettes, uncomplicated; Z20.822 Contact with and (suspected) exposure to COVID-19; Z88.8 Allergy status to other drugs, medicaments and biological substances; Z79.899 Other long term (current) drug therapy; Z90.49 Acquired absence of other specified parts of digestive tract

== ENCOUNTER → 2020-08-10 | Outpatient (CLI) | payer BC ==
--- NOTE | 2020-08-10 10:42 | Diagnostic Imaging Report ---
INDICATION: Right elbow pain. TIME OF EXAM: 9:02 AM. FINDINGS: Three views of the right elbow were obtained. The alignment is normal. The joint spaces are well-maintained. No fracture, dislocation, or effusion is detected. IMPRESSION: No acute abnormality is detected. Dictated by: Dictated on workstation # [id number]
--- NOTE | 2020-08-10 10:43 | Diagnostic Imaging Report ---
INDICATION: Left elbow pain. TIME OF EXAM: 9:04 AM. FINDINGS: Three views of the left elbow were obtained. The alignment is normal. The joint spaces are well-maintained. No fractures are seen. There is no dislocation. No joint effusion is detected. IMPRESSION: No acute abnormality is detected. Dictated by: Dictated on workstation # [id number]
== END ==
LOC: RAD FS 08:50
PROVIDERS: ATTEND Nurse Practitioner
DX: M25.522 Pain in left elbow (principal); M25.521 Pain in right elbow
CPT/HCPCS: 73080

== ENCOUNTER 2020-12-27 08:41 | Emergency (ER) | payer BC ==
[~2020-12-27] VITALS: Ht 157.5 cm; Wt 47.6 kg
[~2020-12-27 08:41] MED LIST changes: +DOXY-311 PO; -DOXY100C42 PO
[2020-12-27] MEDS ORDERED: diphenhydrAMINE 50 MG/ML INJ (BENADRYL) IVP STA (09:07)
[2020-12-27] MEDS ORDERED: NS IV 1000 ML 1,000 ML IV STA (09:07)
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
--- NOTE | 2020-12-27 09:19 | Diagnostic Imaging Report ---
Indication: Shortness of breath Portable chest 8:58 AM Heart size and pulmonary vascularity are normal. Lungs are clear. There are no effusions or pneumothoraces. IMPRESSION: Negative chest. Dictated by: Dictated on workstation # [id number]
[2020-12-27 09:20] LABS: HEMATOCRIT 44 % (35-52); HEMOGLOBIN 15.4 g/dL (11.5-16.0); MEAN CORPUSCULAR HEMOGLOBIN 32 pg (25-34); MEAN CORPUSCULAR HGB CONC 35 g/dL (32-36); MEAN CORPUSCULAR VOLUME 91 fL (80-99); PLATELET COUNT 326 10^3/uL (130-400); WHITE BLOOD COUNT 6.9 10^3/uL (4.3-11.0)
[2020-12-27 09:21] LABS: BASOPHILS % (AUTO) 0 % (0-10); EOSINOPHILS # (AUTO) 0.2 10^3/uL (0.0-0.3); EOSINOPHILS % (AUTO) 2 % (0-10); LYMPHOCYTES # (AUTO) 1.2 X 10^3 (1.0-4.0); LYMPHOCYTES % (AUTO) 17 % (12-44); MEAN PLATELET VOLUME 9.2 fL (9.0-12.2); MONOCYTES # (AUTO) 0.4 X 10^3 (0.0-1.0); MONOCYTES % (AUTO) 5 % (0-12); NEUTROPHILS # (AUTO) 5.2 X 10^3 (1.8-7.8); NEUTROPHILS % (AUTO) 75 % (42-75)
[2020-12-27 09:37] LABS: ALANINE AMINOTRANSFERASE 17 U/L (0-55); ALBUMIN 5.2 GM/DL (3.2-4.5); ALKALINE PHOSPHATASE 60 U/L (40-136); BILIRUBIN,TOTAL 0.7 MG/DL (0.1-1.0); BUN/CREATININE RATIO 11; CALCIUM 9.5 MG/DL (8.5-10.1); CARBON DIOXIDE 22 MMOL/L (21-32); CHLORIDE 104 MMOL/L (98-107); CREATININE SERUM 0.71 MG/DL (0.60-1.30); GFR ESTIMATED 92; GLUCOSE 82 MG/DL (70-105); MAGNESIUM 2.1 MG/DL (1.6-2.4); POTASSIUM 3.1 MMOL/L (3.6-5.0); SODIUM 142 MMOL/L (135-145); TOTAL PROTEIN 8.1 GM/DL (6.4-8.2)
[2020-12-27] MEDS ORDERED: KCL 20 MEQ TAB (K-DUR) PO STA (10:18)
[2020-12-27 10:39] VITALS: BP 141/88
== END 2020-12-27 10:39 | disposition home or self-care (01) ==
LOC: EDUNIT# 08:41 → ER FS 08:43
DX: R00.2 Palpitations (principal); R06.02 Shortness of breath; E87.6 Hypokalemia; E86.0 Dehydration; T22.212A Burn of second degree of left forearm, initial encounter; X08.8XXA Exposure to other specified smoke, fire and flames, initial encounter
CPT/HCPCS: 36415; 71045; 80053; 83735; 84484; 85025; 85379; 86141; 93005; 93041

== ENCOUNTER → 2021-02-16 | Outpatient (CLI) | payer BC ==
--- NOTE | 2021-02-16 12:54 | Diagnostic Imaging Report ---
INDICATION: Right shoulder pain. TIME OF EXAM: 11:22 AM FINDINGS: Multiple views right shoulder were obtained. Glenohumeral and acromioclavicular alignment are normal. Acromiohumeral space is normal. No fracture or dislocation is identified. IMPRESSION: No acute bony abnormality is detected. Dictated by: Dictated on workstation # [id number]
== END ==
LOC: RAD FS 10:57
PROVIDERS: ATTEND Nurse Practitioner
DX: M75.01 Adhesive capsulitis of right shoulder (principal)
CPT/HCPCS: 73030

== ENCOUNTER → 2021-06-19 | Outpatient (CLI) | payer BC ==
[~2021-06-19] MED LIST changes: +DICY20TA PO; -DICY20TA10 PO
--- NOTE | 2021-06-19 12:14 | Diagnostic Imaging Report ---
INDICATION: Right elbow pain COMPARISON: None. FINDINGS: 3 views of the right elbow show no fractures, dislocations, or other acute bony abnormalities identified. Joint spaces are well maintained throughout. The soft tissues appear unremarkable. No radiopaque foreign bodies are identified. IMPRESSION: No acute fractures or dislocations of the right elbow. Dictated by: Dictated on workstation # [id number]
== END ==
LOC: RAD FS 11:51
PROVIDERS: ATTEND Nurse Practitioner
DX: M25.521 Pain in right elbow (principal)
CPT/HCPCS: 73080